=== PATIENT | male | born 2000 | race Caucasian/White ===

== ENCOUNTER 2019-06-11 20:56 | Emergency (ER) | payer BC ==
[~2019-06-11] VITALS: Ht 190.5 cm; Wt 70.0 kg
[2019-06-11 21:13] VITALS: BP 145/83
[2019-06-11] MEDS ORDERED: TRIA15CR61 TOP (23:21)
[2019-06-11] MEDS ORDERED: HYDR28CR14 TOP (23:21)
[2019-06-11] MEDS ORDERED: PRED20TA PO (23:21)
== END 2019-06-11 23:32 | disposition home or self-care (01) ==
LOC: ER 20:57
DX: L30.9 Dermatitis, unspecified (principal); Z79.899 Other long term (current) drug therapy
CPT/HCPCS: 99283